=== PATIENT | female | born 1990 | race Caucasian/White ===

== ENCOUNTER 2022-11-03 07:00 | Day surgery (SDC) | payer SELFPAY ==
[2022-11-01 11:54] VITALS: BMI 27.3
[~2022-11-03 07:00] MED LIST: ACETAMINOPHEN 325 MG TABLET (FP) PO PRN; DOCUSATE SODIUM 100 MG CAPSULE (FP) PO PRN; diazePAM 2 MG TABLET PO PRN; oxyCODONE HCL 5 MG TABLET PO PRN
[2022-11-03] MEDS ORDERED: BACITRACIN ZINC 15 GM TUBE TOPICAL OINTMENT ONE (07:11)
[2022-11-03] MEDS ORDERED: EPINEPHrine/PF 1 MG/1 ML (1:1,000) AMPULE ONE ×2 (07:11→10:17)
[2022-11-03] MEDS ORDERED: LIDOCAINE HCL 1%, 10 MG/ML (20ML VIAL) ONE ×2 (07:11→10:17)
[2022-11-03] MEDS ORDERED: DEXAMETHASONE SOD PHOSPHATE 4 MG/1 ML VIAL ONE (07:42)
[2022-11-03] MEDS ORDERED: LIDOCAINE HCL/PF 2% SDV 5ML VIAL ONE (07:42)
[2022-11-03] MEDS ORDERED: ONDANSETRON 4 MG/2 ML VIAL ONE (07:42)
[2022-11-03] MEDS ORDERED: PROPOFOL 20 ML ONE (07:43)
[2022-11-03] MEDS ORDERED: ROCURONIUM BROMIDE 50 MG/5 ML SYRINGE ONE ×2 (07:43→11:07)
[2022-11-03] MEDS ORDERED: MIDAZOLAM HCL 2 MG/2 ML SINGLE DOSE VIAL ONE (07:43)
[2022-11-03] MEDS ORDERED: ACETAMINOPHEN INJECTION 100 ML IVPB ONE (07:47)
[2022-11-03] MEDS ORDERED: GLYCOPYRROLATE 0.2 MG/1 ML VIAL ONE ×3 (13:13)
[2022-11-03] MEDS ORDERED: NEOSTIGMINE METHYLSULFATE 0.5 MG/1 ML - 10 ML MDV ONE (13:13)
[2022-11-03] MEDS ORDERED: FENTANYL CITRATE/PF 50 MCG/ML VIAL ONE (14:15)
[2022-11-03] MEDS ORDERED: ONDANSETRON 4 MG/2 ML VIAL IVPUSH PRN (14:20)
[2022-11-03] MEDS ORDERED: ceFAZolin SODIUM 1 GM VIAL ONE (14:58)
[2022-11-03] MEDS: ONDANSETRON 4 MG/2 ML VIAL IVPUSH PRN (16:11)
[2022-11-03] MEDS: CEFAZOLIN 1 GM in DEXTROSE 5%-WATER - 50 ML IVPB SCH ×2 (16:29→20:19)
[2022-11-03] MEDS: LACTATED RINGERS SOLUTION 1,000 ML IV SCH (20:06)
[2022-11-03] MEDS: HYDROmorphone HCl 2 MG/ML VIAL IVPB PRN (20:23)
[2022-11-04] MEDS: HYDROmorphone HCl 2 MG/ML VIAL IVPB PRN ×3 (00:32→12:20)
[2022-11-04] MEDS: CEFAZOLIN 1 GM in DEXTROSE 5%-WATER - 50 ML IVPB SCH ×2 (02:53→08:17)
[2022-11-04] MEDS: ONDANSETRON 4 MG/2 ML VIAL IVPUSH PRN ×3 (03:33→10:01)
[2022-11-04] MEDS ORDERED: ENOXAPARIN NA (PORCINE) 40 MG/0.4 ML DISP.SYRIN SQ ONE (06:00)
[2022-11-04] MEDS: DOXYCYCLINE HYCLATE 100 MG CAPSULE PO SCH ×2 (06:26→17:26)
[2022-11-04] MEDS: CEPHALEXIN MONOHYDRATE 500 MG CAPSULE (UD) PO SCH ×3 (06:26→17:25)
[2022-11-04] MEDS: LACTATED RINGERS SOLUTION 1,000 ML IV SCH (06:26)
[2022-11-04] MEDS: oxyCODONE HCL 5 MG TABLET PO PRN ×2 (17:23→21:33)
[2022-11-04 19:55] VITALS: BP 112/68; PULSE 93; RESP 16; TEMP 99.4
== END 2022-11-04 22:36 | disposition home or self-care (01) ==
LOC: FASU 07:00 → FM/S 16:06 → FASU 11-04 22:36
PROVIDERS: ATTEND Surgery
CPT/HCPCS: 81025; 94760